=== PATIENT | female | born 1995 | race Hispanic/Latino ===

== ENCOUNTER 2017-11-28 16:40 | Outpatient (CLI) | payer BC | END 2017-11-28 16:41 | disposition home or self-care (01) | LOC: BICRAD 16:40 | PROVIDERS: ATTEND Family Medicine | DX: R07.9 Chest pain, unspecified (principal); R10.9 Unspecified abdominal pain | CPT/HCPCS: 71046; 74018 ==

== ENCOUNTER 2017-12-03 16:10 | Outpatient (CLI) | payer BC | END 2017-12-03 16:11 | disposition home or self-care (01) | LOC: BICULT 16:10 | PROVIDERS: ATTEND Family Medicine | DX: R10.2 Pelvic and perineal pain (principal); R07.9 Chest pain, unspecified | CPT/HCPCS: 76856; 93976 ==

== ENCOUNTER 2019-01-01 12:54 | Outpatient (CLI) | payer BC ==
--- NOTE | 2019-01-01 15:44 | ULT ---
OB ULTRASOUND: HISTORY: anatomy. FINDINGS: A single live intrauterine gestation is seen with measurements corresponding to an estimated gestatio nal age of 22 weeks 3 days and an PAPITO of 05/04/2019. The estimated weight measures 554 g or 1 lb 4 oz. measurements are as follows: BPD: 5.16 cm (21 weeks 5 days). HC: 19.52 cm (21 weeks 5 days). AC: 19.13 cm (23 weeks 6 days). FL: 3.87 cm (22 weeks 3 days). heart rate measures 157 beats per minute. Placenta is posteriorly located without evidence of placenta previa. Amniotic fluid index measures 13.3 cm. A three-vessel cord, cord insertion, kidneys, bladder, stomach, four-chambered heart, lateral v entricles, cerebellum, spine, lips/nose, and upper and lower extremities are visualized. No definite anomalies are seen. IMPRESSION: Single live intrauterine of 22 weeks 3 days. Estimated gestational age and estimated date of delivery 05/04/2019. POS: OFF
== END 2019-01-01 12:55 | disposition home or self-care (01) ==
LOC: ULT 12:54
PROVIDERS: ATTEND Family Medicine
DX: Z34.82 Encounter for supervision of other normal pregnancy, second trimester (principal); Z3A.22 22 weeks gestation of pregnancy
CPT/HCPCS: 76805

== ENCOUNTER 2019-04-25 20:57 | Day surgery (SDC) | payer BC ==
[2019-04-25 21:37] VITALS: BMI 26.4
--- NOTE | 2019-04-25 23:34 | PRG ---
DATE OF SERVICE: 04/25/2019 PRIMARY OB: Dr. Ferdinand Conrad. CHIEF COMPLAINT: Uterine contractions. HISTORY OF PRESENT ILLNESS: The patient is a 24-year-old G3, P2 female with an intrauterine at 38 weeks' gestation, who is presenting with uterine contractions that began yesterday morning about 6:00 p.m., the patient reports that she has been having it about every 10 minutes or so. She denies leakage of fluid or vaginal bleeding. She does report some urinary urgency. She feels the contraction pain much more strongly lying down than standing when she was last seen on by Dr. Conrad and was noted to have a closed cervix. PAST MEDICAL HISTORY: Negative. PAST SURGICAL HISTORY: Negative. ALLERGIES: NO KNOWN DRUG ALLERGIES. MEDICATIONS: vitamins. OB HISTORY: She has had 2 term uncomplicated deliveries. SOCIAL HISTORY: Denies drug, alcohol, or tobacco use. REVIEW OF SYSTEMS: The patient denies any illness, fever, fall, headache, chest pain, shortness of breath, nausea, vomiting, diarrhea, constipation. The patient reports hip pains and back pain. Denies vaginal bleeding or leakage of fluid. Reports urinary urgency. OB LABS: Blood type is O positive. Antibody screen is negative. RPR is negative in the first and third trimester. HIV is negative in the first and third trimester. Hepatitis B surface antigen is negative. She is rubella immune. GC and chlamydia are negative. UDS screen is negative. One-hour Glucola was 153. Three-hour GTT 87, 148, 138, and 118. Again GBS negative. PHYSICAL EXAMINATION: VITAL SIGNS: Blood pressure 123/79, heart rate of 71, respiratory rate 18, saturating 100% on room air, temperature 98.5. GENERAL: She appears to be in no acute distress. She is alert, oriented, cooperative, pleasant to interact with. HEENT: Head is normocephalic and atraumatic. LUNGS: Clear to auscultation bilaterally. HEART: Has a regular rate and rhythm. ABDOMEN: Gravid and soft. EXTREMITIES: Nontender, nonedematous. CERVICAL EXAMINATION: Per nursing staff is 1 and thick. heart tracing shows fetus with a baseline in the 140s with moderate long-term variability, positive 15 x 15 accelerations, no decelerations. Tocometer showing a lot of irritability with contractions about every 5 to 7 minutes. ASSESSMENT AND PLAN: The patient is a 24-year-old G3, P2 female with an intrauterine at 38 weeks having contractions without evidence of active labor at this time. The patient will be monitored for the next couple hours and would like to go walking. She has declined pain medication at this time. Fetus has a reactive NST and category 1 tracing. Job ID: [id number]
[2019-04-26] MEDS ORDERED: hydrALAZINE 20 MG/ML VIAL SLOW IVP PRN (01:45)
[2019-04-26] MEDS ORDERED: Morphine 10 MG/ML VIAL IM SCH (02:00)
[2019-04-26] MEDS ORDERED: Promethazine HCl 25 MG/ML VIAL IM SCH (02:00)
== END 2019-04-26 02:20 | disposition home or self-care (01) ==
LOC: L&D/OP 20:57
PROVIDERS: ATTEND Family Medicine
DX: O47.1 False labor at or after 37 completed weeks of gestation (principal); O99.89 Other specified diseases and conditions complicating pregnancy, childbirth and the puerperium; R39.15 Urgency of urination; Z3A.38 38 weeks gestation of pregnancy
CPT/HCPCS: 96372; 99283; J2270; J2550

== ENCOUNTER 2020-10-28 14:21 | Inpatient (IN) | payer BC, OTHER, SELFPAY ==
[2020-10-28] MEDS ORDERED: Promethazine HCl 25 MG/ML VIAL IM PRN ×2 (15:09→18:23)
[2020-10-28] MEDS ORDERED: Methylergonovine 0.2 MG/ML VIAL IM PRN (15:09)
[2020-10-28] MEDS ORDERED: Carboprost 250 MCG/ML AMP IM PRN (15:09)
[2020-10-28] MEDS ORDERED: NS / Oxytocin 40 units/1000ml 1,000 ML IV PRN (15:09)
[2020-10-28] MEDS ORDERED: Diphenoxylate HCl/Atropine Tablet PO PRN (15:09)
[2020-10-28] MEDS ORDERED: Ondansetron PF 4 MG/2 ML Vial IVP PRN ×2 (15:09→18:23)
[2020-10-28] MEDS ORDERED: Butorphanol Tartrate 1 MG/ML VIAL SLOW IVP PRN (15:09)
[2020-10-28] MEDS ORDERED: Lidocaine 1% (PF) 30 ML VIAL SC PRN (15:09)
[2020-10-28] MEDS ORDERED: Acetaminophen 500 MG TAB PO PRN (15:09)
[2020-10-28] MEDS ORDERED: Misoprostol 200 MCG TAB PR PRN (15:09)
[2020-10-28] MEDS ORDERED: Ibuprofen 800 MG TAB PO PRN (15:09)
[2020-10-28] MEDS ORDERED: hydrALAZINE 20 MG/ML VIAL SLOW IVP PRN ×2 (15:09→18:23)
[2020-10-28] MEDS ORDERED: NS w/ Oxytocin 30 units 500 ML ONE (15:11)
[2020-10-28 15:15] VITALS: BMI 28.3
[2020-10-28] MEDS ORDERED: NS w/ Oxytocin 30 units 500 ML IV PRN (15:17)
--- NOTE | 2020-10-28 15:27 | PDOC.LDHP ---
Labor and Delivery H&P Chief complaint: contractions HPI: 25 yo presents to L&D for painful contractions that started at 10:30am this morning. She endorses movement. She denies vaginal bleeding or loss of fluid. She denies PMH, PSH, and medications other than PNV. Current gestational age (weeks): 38 (6) Due date: 11/05/20 Dating criteria: last menstrual period Grav: 4 Para: 3 Current complications: none Abnormal US findings: No Past Medical History: None Current medications: pre-jw vitamins Previous surgical history: none Allergies/Adverse Reactions: Allergies Allergy/AdvReac Type Severity Reaction Status Date / Time No Known Allergies Allergy Verified 04/25/19 21:34 Social history: none - Physical Exam Vital signs reviewed and normal: yes General: NAD, breathing through contractions Heart: RRR Lungs: nonlabored breathing Abdomen: NTTP Extremeties: no edema FHT: category 1 [place] contractions every: 4-5 min - Vaginal Exam cm dilated: 7 Effacement: 90% Station: 0 - OB Labs Blood type: O RH: positive Antibody Screen: negative HIV: negative RPR: negative HEPSAg: negative 1 hour GCT: negative GBS: negative Rubella: immune - Assessment L&D Assessment: term patient in labor - Plan Plan: admit to L&D -: sIUP, term, in labor - SVE /bulging bag. CTX q 4 min. FHT cat 1. - Expectant management of labor. - GBS negative. Discussed plan w/ Dr. Willis attending. Noris STAUFFER PGY2 Addendum - Attending - Attending Attestation Date/Time: 10/28/20 [id number] I personally evaluated the patient and discussed the management with Dr. Delgado. Multip at term in active labor. Expect quickly. I agree with the History, Examination, Assessment and Plan documented above.
[2020-10-28] MEDS ORDERED: NS w/ Oxytocin 30 units 500 ML IVPB SCH (15:30)
[2020-10-28] MEDS ORDERED: Lactated Ringer's 1,000 ML IV SCH (15:30)
[2020-10-28 15:39] LABS: Hemoglobin 13.3 g/dL (12.0-16.0); Mean Corpuscular HGB CONC 34.4 g/dL (32.0-36.0); Mean Corpuscular Hemoglobin 30.5 pg (27.0-31.0); Mean Corpuscular Volume 88.5 fL (78.0-98.0); Mean Platelet Volume 10.8 fL (7.4-10.4); Platelet Count 161 thou/uL (130-400); RBC Distribution Width 13.6 % (11.5-14.5); Red Blood Cell (RBC) Count 4.36 mill/uL (4.20-5.40); White Blood Cell (WBC) Count 11.3 thou/uL (4.8-10.8)
[2020-10-28 16:21] LABS: HBSAg Index 0.16 S/CO (0-0.99); Hep B Surf Ag Non-Reactive S/CO (NonReactive); Syphilis Antibody Nonreactive (Nonreactive); Syphilis Antibody Index 0.02 S/CO (<1.00 Non-Reactive)
--- NOTE | 2020-10-28 16:58 | PDOC.OPDEL ---
OB Operative/Delivery Note Delivery Dr/Surgeon: Lazaro Assist: Danny Pre-Delivery Diagnosis: active labor Procedure/Post Delivery Dx: spontaneous vaginal delivery Weeks gestation: 38 Anesthesia: local - Additional Findings/Plan Placenta delivered: spontaneous Repaired Obstetrical Laceration: 2nd degree Estimated blood loss: 250 cc., QBL pending Compilations/Other Findings: Rapid progress with of viable female OA. Apgars 8/9. Placenta intact Mario. Small 2* laceration repaired with 2-0 chromic in layres using local anesthesia. Mom and baby doing well. Post delivery plan: routine recovery
[2020-10-28] MEDS ORDERED: Bisacodyl 10 MG SUPP PR PRN (18:23)
[2020-10-28] MEDS ORDERED: Preparation H Ointment 28 GM TUBE PR PRN (18:23)
[2020-10-28] MEDS ORDERED: Benzocaine-Menthol 82.5 ML CAN TOP PRN (18:23)
[2020-10-28] MEDS ORDERED: Lanolin Ointment 7 GM TUBE TOP PRN (18:23)
[2020-10-28] MEDS ORDERED: Misoprostol 200 MCG TAB VAG PRN (18:23)
[2020-10-28] MEDS ORDERED: NS / Oxytocin 40 units/1000ml 1,000 ML IV SCH (18:23)
[2020-10-28] MEDS ORDERED: diphenhydrAMINE 25 MG CAP PO PRN (18:23)
[2020-10-28] MEDS ORDERED: Milk Of Magnesia 30 ML UDCUP PO PRN (18:23)
[2020-10-28] MEDS ORDERED: Ferrous Sulfate 325 MG TAB PO SCH (19:00)
[2020-10-28] MEDS: Docusate Calcium (SURFAK) 240 MG CAP PO SCH (21:13)
[2020-10-28] MEDS: Ibuprofen 800 MG TAB PO SCH (21:13)
[2020-10-28 23:55] LABS: SARS-CoV-2 MS2 Positive; SARS-CoV-2 N Gene Negative; SARS-CoV-2 S Gene Negative; SARS-CoV-2 by NAA Not Detected (NotDetected); SARS-CoV-2 orf1ab Negative
[2020-10-29] MEDS: Ibuprofen 800 MG TAB PO SCH ×2 (05:56→15:44)
--- NOTE | 2020-10-29 06:33 | PDOC.PP ---
Post Progress Note Post Day #: 1 Subjective: Doing well this morning. No concerns or complaints. PO intake tolerated: yes Flatus: yes Ambulation: yes Vital Signs (12 hours) Temp Pulse Resp BP Pulse Ox 10/29/20 03:45 98.0 F 76 18 120/74 99 10/29/20 00:00 97.2 F L 68 18 126/72 10/28/20 19:40 98.6 F 74 20 127/72 98 Weight Weight 74.843 kg - Physical Examination General: NAD Respiratory: non-labored breathing Abdominal: no distention Neurological: no gross focal deficits Psychiatric: A&Ox3, normal affect Result Diagrams: 10/28/20 15:27 Additional Labs: Post Labs Hep Bs Antigen Non-Reactive S/CO (NonReactive) 10/28/20 15:27 Blood Type O POSITIVE 10/28/20 17:26 (1) Normal vaginal delivery Code(s): O80 - ENCOUNTER FOR FULL-TERM UNCOMPLICATED DELIVERY Status: Acute (2) Perineal laceration during delivery Code(s): O70.9 - PERINEAL LACERATION DURING DELIVERY, UNSPECIFIED Status: Acute - Assessment/Plan PPD #1, s/p w/ 2nd degree perineal laceration - Routine recovery. - Dr. Conrad, PCP, will likely be in to round today. Noris STAUFFER PGY2 Seen with Dr. Willis attending. Addendum - Attending - Attending Attestation Date/Time: 10/30/20926 I personally evaluated the patient and discussed the management with Dr. Delgado. I agree with the History, Examination, Assessment and Plan documented above.
[2020-10-29] MEDS: Ferrous Sulfate 325 MG TAB PO SCH ×2 (07:50→18:46)
[2020-10-29] MEDS ORDERED: Prenatal Vitamin 1 TAB PO SCH (09:00)
[2020-10-29] MEDS ORDERED: Adacel (T-DAP) 0.5 ML SYRINGE IM ONE (09:00)
[2020-10-29] MEDS: Docusate Calcium (SURFAK) 240 MG CAP PO SCH (09:26)
[2020-10-29 12:39] VITALS: BP 138/75; TEMP 98.8
== END 2020-10-29 18:52 | disposition home or self-care (01) | DRG 807 ==
LOC: L&D/OP 14:21 → L&D 15:09 → 3SW 19:43
PROVIDERS: ADMIT Family Medicine; ATTEND Family Medicine
PROC: 10E0XZZ Delivery of Products of Conception, External Approach (ICD-10-PCS; principal; 2020-10-28)
PROC: 0KQM0ZZ Repair Perineum Muscle, Open Approach (ICD-10-PCS; 2020-10-28)
DX: O70.1 Second degree perineal laceration during delivery (principal); Z37.0 Single live birth; Z20.822 Contact with and (suspected) exposure to COVID-19; Z3A.38 38 weeks gestation of pregnancy
CPT/HCPCS: 36415; 85027; 86780; 86850; 86900; 86901; 87340; 87635; J0595; J2590; U0003